=== PATIENT | male | born 1965 | race Caucasian/White ===

== ENCOUNTER 2017-11-22 15:16 | Emergency (ER) | payer SELFPAY ==
[~2017-11-22] VITALS: Ht 165.1 cm; Wt 92.1 kg
[2017-11-22 15:30] VITALS: Ht 165.1 cm; Wt 92.1 kg
[2017-11-22 20:08] VITALS: BP 115/69
== END 2017-11-22 20:08 | disposition home or self-care (01) ==
LOC: ED 15:16
DX: T67.9XXA Effect of heat and light, unspecified, initial encounter (principal); G44.209 Tension-type headache, unspecified, not intractable; M54.12 Radiculopathy, cervical region; I10 Essential (primary) hypertension; E78.00 Pure hypercholesterolemia, unspecified; X50.1XXA Overexertion from prolonged static or awkward postures, initial encounter; Y93.89 Activity, other specified; Y92.89 Other specified places as the place of occurrence of the external cause; Y99.8 Other external cause status